=== PATIENT | female | born 1980 | race Caucasian/White ===

== ENCOUNTER 2017-02-14 10:55 | Outpatient (CLI) | payer BC ==
[2017-02-14 20:14] LABS: THYROID STIMULATING HORMONE 2.17 uIU/mL (0.34-5.60)
[2017-02-14 20:18] LABS: FERRITIN 59.5 ng/mL (11.0-306.8)
[2017-02-14 20:40] LABS: BILIRUBIN,TOTAL 0.7 mg/dL (0.2-1.0); CALCIUM 9.2 mg/dL (8.5-10.3); CREATININE 0.6 mg/dL (0.4-1.0); POTASSIUM 4.3 mmol/L (3.5-5.0); TOTAL PROTEIN 7.1 g/dL (6.7-8.2)
== END 2017-02-14 10:56 | disposition home or self-care (01) ==
LOC: LAB.WCP 10:55
PROVIDERS: ATTEND Physician Assistant Medical
DX: R79.9 Abnormal finding of blood chemistry, unspecified (principal); E61.1 Iron deficiency; E05.00 Thyrotoxicosis with diffuse goiter without thyrotoxic crisis or storm
CPT/HCPCS: 36415; 80053; 82728; 84439; 84443; 84481

== ENCOUNTER 2017-07-31 22:48 | Emergency (ER) | payer BC ==
[2017-07-31] MEDS ORDERED: TETANUS/DIPHTHERIA/PERTUSSIS 0.5 ML SYRINGE IM ONE (23:02)
[2017-07-31] MEDS ORDERED: BUFFERED LIDOCAINE 10 ML SYRINGE SUBQ STA (23:14)
--- NOTE | 2017-07-31 23:16 | ED Physician Documentation ---
PD HPI UPPER EXT INJURY - Stated complaint Stated Complaint: THUMB INJURY - Chief complaint Chief Complaint: Laceration - History obtained from History obtained from: Patient - History of Present Illness Location: Left (Right-handed woman was working on something and accidentally punctured the thumbnail of her left thumb with a drill. Tetanus is not up-to- date.) Review of Systems Constitutional: reports: Reviewed and negative Ears: reports: Reviewed and negative Throat: reports: Reviewed and negative PD PAST MEDICAL HISTORY - Past Medical History Past Medical History: Yes Other Past Medical History: Myasthenia - Past Surgical History Past Surgical History: No - Present Medications Home Medications: Ambulatory Orders Medication Instructions Recorded Confirmed No Known Home Medications [No 07/31/17 07/31/17 Known Home Medications] - Allergies Allergies/Adverse Reactions: Allergies Allergy/AdvReac Type Severity Reaction Status Date / Time hydrocodone AdvReac Unknown Verified 07/31/17 22:59 - Social History Does the pt smoke?: No Smoking Status: Never smoker Does the pt drink ETOH?: No Does the pt have substance abuse?: No - Immunizations Immunizations are current?: No Immunizations: TDAP >10years/unknown - POLST Patient has POLST: No PD ED PE NORMAL - Vitals Vital signs reviewed: Yes - General General: Alert and oriented X 3, No acute distress - Extremities Extremities: Other (Through the central part of the nail of the left thumb there is a puncture wound, and it actually looks like a piece of nail is kind of pointing down into the nailbed. There is no active bleeding.) - Neuro Neuro: Alert and oriented X 3, Normal speech Results - Vitals Vitals: Vital Signs - 24 hr 07/31/17 08/01/17 22:57 00:16 Temperature 36.7 C 37.1 C Heart Rate 62 74 Respiratory 17 12 Rate Blood Pressure 129/88 H 101/71 O2 Saturation 100 100 Oxygen O2 Source Room air - Rads (name of study) L thumb Radiology: EMP read contemporaneously Procedures - General procedure General procedure: A digital block was done of the left thumb with buffered lidocaine with excellent effect. The wound was explored and basically what she had was the nail piece was there in it entirety but it was just bent down into the nail plate so it was pulled up and reapproximated into its normal position. PD MEDICAL DECISION MAKING - ED course ED course: Wound care was done, pretty small wound.... I did not see any frx on xray, final read with small tuft chip. Relayed to patient. I don't think prophy abx are indicated, see Rafaela Dukes et al. The use of prophylactic antibiotics in treatment of fingertip amputation: a randomized prospective trial. Am J Emerg Med. 2015 July;33(5):645-7. PMID: [id number]. Departure - Departure Disposition: 01 Home, Self Care Clinical Impression: Puncture wound of finger without foreign body with damage to nail Qualifiers: Encounter type: initial encounter Qualified Code(s): S61.339A - Puncture wound without foreign body of unspecified finger with damage to nail, initial encounter Condition: Good Record reviewed to determine appropriate education?: Yes Instructions: ED Wound Puncture General Comments: Ibuprofen as needed for pain. Return if worse. Keep it covered and dry. He may wash with soap and water. Discharge Date/Time: 08/01/17 00:18
--- NOTE | 2017-08-01 00:12 | XRAY Preliminary Report ---
Exam: XR FINGER(S) LT IMPRESSION: 1. Tiny tuft fracture of the distal phalanx. 2. No radiopaque foreign body seen. [facility] SITE ID: [id number]
--- NOTE | 2017-08-01 00:12 | XRAY Report ---
EXAM: LEFT FIRST DIGIT RADIOGRAPHY EXAM DATE: 08/01/2017 12:03 AM. CLINICAL HISTORY: Pain after injury. COMPARISON: None. TECHNIQUE: 3 views. FINDINGS: Bones: Tiny tuft fracture of the distal phalanx. Joints: No dislocation seen. Joint spaces appear intact. Soft Tissues: Injury to the fingernail. Soft tissue swelling. No radiopaque foreign body identified. IMPRESSION: 1. Tiny tuft fracture of the distal phalanx. 2. No radiopaque foreign body seen. [facility] Referring Provider Line: [phone] SITE ID: [id number]
[2017-08-01 00:17] VITALS: BP 101/71
== END 2017-08-01 00:18 | disposition home or self-care (01) ==
LOC: ED 22:48
DX: S61.112A Laceration without foreign body of left thumb with damage to nail, initial encounter (principal); S61.132A Puncture wound without foreign body of left thumb with damage to nail, initial encounter; W29.8XXA Contact with other powered hand tools and household machinery, initial encounter; Z23 Encounter for immunization
CPT/HCPCS: 73140; 90471; 99283

== ENCOUNTER 2018-01-28 16:23 | Outpatient (CLI) | payer BC ==
[2018-01-28] MEDS ORDERED: IOPAMIDOL-300 100 ML VIAL ONE (16:29)
[2018-01-28] MEDS ORDERED: IOVERSOL 320 50 ML VIAL ONE (16:29)
[2018-01-28 16:38] LABS: BASOPHILS % (AUTO) 0.4 %; EOSINOPHILS # (AUTO) 0.1 10^3/uL (0.0-0.7); EOSINOPHILS % (AUTO) 2.1 %; HGB - HEMOGLOBIN 13.8 g/dL (12.0-16.0); LYMPHOCYTES # (AUTO) 1.1 10^3/uL (1.5-3.5); LYMPHOCYTES % (AUTO) 18.3 %; MEAN CORPUSCULAR HEMOGLOBIN 30.4 pg (27.0-31.0); MEAN CORPUSCULAR HGB CONC 34.2 g/dL (32.0-36.0); MEAN CORPUSCULAR VOLUME 88.9 fL (81.0-99.0); MEAN PLATELET VOLUME 7.3 fL (7.9-10.8); MONOCYTES # (AUTO) 0.4 10^3/uL (0.0-1.0); MONOCYTES % (AUTO) 6.4 %; NEUTROPHILS # (AUTO) 4.3 10^3/uL (1.5-6.6); NEUTROPHILS % (AUTO) 72.8 %; PLT - PLATELET COUNT 160 10^3/uL (130-450); RED BLOOD COUNT 4.53 10^6/uL (4.20-5.40); RED CELL DISTRIBUTION WIDTH 12.3 % (12.0-15.0); WHITE BLOOD COUNT 5.9 x10^3/uL (4.8-10.8)
[2018-01-28 16:50] LABS: ALBUMIN 4.5 g/dL (3.2-5.5); BILIRUBIN,TOTAL 0.8 mg/dL (0.2-1.0); CALCIUM 8.9 mg/dL (8.5-10.3); CREATININE 0.8 mg/dL (0.4-1.0); TOTAL PROTEIN 6.8 g/dL (6.7-8.2)
[2018-01-28] MEDS ORDERED: IOVERSOL 320 50 ML VIAL PO ONE (18:26)
[2018-01-28] MEDS ORDERED: IOPAMIDOL-300 100 ML VIAL IVP ONE (18:28)
--- NOTE | 2018-01-28 19:22 | CT Report ---
Reason: ABDOMINAL PAIN,RIGHT LOWER QUADRANT Procedure Date: 01/28/2018 Accession Number: [id number] / [id number] Procedure: CT - Abdomen/Pelvis W/ CPT Code: FULL RESULT: EXAM: CT ABDOMEN AND PELVIS EXAM DATE: 01/28/2018 05:41 PM. CLINICAL HISTORY: Abdominal pain for 6 months. Increasing right lower quadrant pain today. COMPARISONS: None. TECHNIQUE: Routine helical CT imaging was performed through the abdomen and pelvis. IV contrast: 100 ML ISOVUE 300. Enteric contrast: 50 cc dilute oral Isovue-300. Reconstructions: Coronal and sagittal. In accordance with CT protocol optimization, one or more of the following dose reduction techniques were utilized for this exam: automated exposure control, adjustment of mA and/or KV based on patient size, or use of iterative reconstructive technique. FINDINGS: Lung Bases: Unremarkable. Liver: Normal. No masses. Gallbladder/Bile Ducts: Unremarkable. Spleen: Normal. Pancreas: Normal. Adrenal Glands: Normal. Kidneys: Normal. No masses or hydronephrosis. Peritoneal Cavity/Bowel: Normal. No free fluid, free air or adenopathy. No masses or acute inflammatory process. The appendix is well visualized and normal. Pelvic Organs: Small amount of free cul-de-sac fluid, most likely physiologic in nature. IUD in place. Uterus is of normal caliber. No adnexal mass lesions. Normal rectum. Vasculature: No aneurysms or other significant abnormality. Bones: No significant abnormality. Other: None. IMPRESSION: 1. IUD. 2. Normal appendix. 3. Unremarkable exam. No radiographic explanation for this young lady's presenting symptoms. [facility]
== END 2018-01-28 16:24 | disposition home or self-care (01) ==
LOC: DI 16:23
PROVIDERS: ATTEND Physician Assistant
DX: R10.31 Right lower quadrant pain (principal); Z97.5 Presence of (intrauterine) contraceptive device
CPT/HCPCS: 36415; 74177; 80053; 85025; Q9967

== ENCOUNTER 2021-03-16 16:58 | Emergency (ER) | payer BC ==
[2021-03-16 17:09] VITALS: BP 135/74
--- NOTE | 2021-03-16 17:13 | ED Physician Documentation ---
PD HPI UPPER EXT INJURY - Stated complaint Stated Complaint: RT ARM INJ - Chief complaint Chief Complaint: Ext Problem - History obtained from History obtained from: Patient - Additonal information Additional information: 40-year-old woman sent from walk-in clinic for right arm injury. She was kicked by her horse earlier today. Pain is mild. Comorbidities include myasthenia gravis. Review of Systems Constitutional: reports: Reviewed and negative Throat: reports: Reviewed and negative Cardiac: reports: Reviewed and negative Respiratory: reports: Reviewed and negative PD PAST MEDICAL HISTORY - Past Surgical History Past Surgical History: No - Present Medications Home Medications: Ambulatory Orders Medication Instructions Recorded Confirmed No Known Home Medications 07/31/17 07/31/17 - Allergies Allergies/Adverse Reactions: Allergies Allergy/AdvReac Type Severity Reaction Status Date / Time hydrocodone AdvReac Unknown Verified 03/16/21 17:08 - Social History Does the pt smoke?: No Smoking Status: Never smoker Does the pt drink ETOH?: No Does the pt have substance abuse?: No - Immunizations Immunizations are current?: No Immunizations: TDAP >10years/unknown - POLST Patient has POLST: No PD ED PE NORMAL - Vitals Vital signs reviewed: Yes - General General: Alert and oriented X 3, No acute distress - Neck Neck: Supple, no meningeal sign, No bony TTP, C-Spine cleared by NEXUS criteria - Extremities Extremities: Other (She has a hematoma over the proximal ulna with good range of motion. No distal neurovascular compromise.) - Neuro Neuro: Alert and oriented X 3, Normal speech Results - Vitals Vitals: Vital Signs - 24 hr 03/16/21 17:05 Temperature 37.4 C Heart Rate 75 Respiratory 15 Rate Blood Pressure 135/74 H O2 Saturation 99 Oxygen O2 Source Room air - Rads (name of study) 2v xr r forearm Radiology: EMP read contemporaneously (neg) Departure - Departure Disposition: 01 Home, Self Care Clinical Impression: Contusion of right forearm Qualifiers: Encounter type: initial encounter Qualified Code(s): S50.11XA - Contusion of right forearm, initial encounter Condition: Good Record reviewed to determine appropriate education?: Yes Instructions: ED Contusion Upper Ext Comments: Tylenol and/or ibuprofen as needed for pain. Return for new or worsening symptoms. Ice as needed. Discharge Date/Time: 03/16/21 17:31
--- NOTE | 2021-03-16 17:37 | XRAY Report ---
PROCEDURE: Forearm RT INDICATIONS: Trauma TECHNIQUE: 2 views of the forearm were acquired. COMPARISON: None. FINDINGS: Bones: No fractures or dislocations. No suspicious bony lesions. Soft tissues: Soft tissue swelling is seen involving the proximal forearm, which is best demonstrated on the lateral view. No radiopaque foreign bodies are seen. IMPRESSION: Soft tissue swelling, without a fracture seen. Please correlate with focal tenderness. If there is point tenderness (or other clinical concern for a fracture not seen on these plain films) then please consider a dedicated CT study or a short term fo llow up plain film series for further evaluation. Reviewed by: Iggy Bear MD on 03/16/2021 4:36 PM [facility] Approved by: Iggy Bear MD on 03/16/2021 4:36 PM [facility] Station ID: [id number]
== END 2021-03-16 17:31 | disposition home or self-care (01) ==
LOC: ED 16:58
DX: S50.11XA Contusion of right forearm, initial encounter (principal); W55.12XA Struck by horse, initial encounter
CPT/HCPCS: 99282; 99283